=== PATIENT | female | born 1975 | race Caucasian/White ===

== ENCOUNTER 2017-07-04 10:01 | Emergency (ER) | payer MEDICAID, OTHER ==
[~2017-07-04] VITALS: Ht 154.9 cm; Wt 67.7 kg
[~2017-07-04 10:01] MED LIST: ESCI10TA45 PO; HYDR-565 PO; INDO25CA PO; OMEP-84 PO; ONDA4TAB9 PO; PANT40TA39 PO; POLY17PO10 PO; TRAM50TA2 PO; VAL5T PO; WEL75T PO; ZOF4T PO
[2017-07-04 10:06] VITALS: BP 156/94
[2017-07-04] MEDS ORDERED: ketorolac trometh inj. 60 MG/2 ML VIAL IM ONE (11:15)
== END 2017-07-04 11:45 | disposition home or self-care (01) ==
LOC: ER 10:01
DX: S96.912A Strain of unspecified muscle and tendon at ankle and foot level, left foot, initial encounter (principal); F15.10 Other stimulant abuse, uncomplicated; Z79.899 Other long term (current) drug therapy; Z90.49 Acquired absence of other specified parts of digestive tract; Z98.51 Tubal ligation status; Z98.890 Other specified postprocedural states; W01.0XXA Fall on same level from slipping, tripping and stumbling without subsequent striking against object, initial encounter; Y93.89 Activity, other specified; Y92.89 Other specified places as the place of occurrence of the external cause; Y99.8 Other external cause status
CPT/HCPCS: 29515; 73630; 99284

== ENCOUNTER 2018-09-29 22:55 | Emergency (ER) | payer SELFPAY ==
[~2018-09-29] VITALS: Ht 154.9 cm; Wt 69.0 kg
[~2018-09-29 22:55] MED LIST changes: +HYDR-4353 PO; -HYDR-565 PO; -INDO25CA PO; +INDO25CA18 PO; +LIDO700A32 TOP; +METH-360 PO
[2018-09-29 22:59] VITALS: BP 130/97
[2018-09-29] MEDS ORDERED: TETanus/Pertussis (Acell)/Diphther VAC/PF (Tdap-Adult) 0.5ml syringe IM ONE (23:35)
[2018-09-29] MEDS ORDERED: ONDA4TAB6 PO (23:47)
[2018-09-29] MEDS ORDERED: HYDR-4353 PO (23:47)
[2018-09-29] MEDS ORDERED: ondansetron 4mg rapidly disintigrating tab PO ONE (23:50)
[2018-09-29] MEDS ORDERED: HYDROcodone/acetaminophen 10/325mg tab PO ONE (23:50)
--- NOTE | 2018-09-30 00:06 | NUR ---
Patient with knee immobilizer and crutches. To lobby by w/c to be picked up by daughter.
== END 2018-09-30 00:11 | disposition home or self-care (01) ==
LOC: ER 22:56
DX: S80.02XA Contusion of left knee, initial encounter (principal); M23.8X2 Other internal derangements of left knee; L98.9 Disorder of the skin and subcutaneous tissue, unspecified; G89.29 Other chronic pain; F41.9 Anxiety disorder, unspecified; F32.9 Major depressive disorder, single episode, unspecified; F15.90 Other stimulant use, unspecified, uncomplicated; F10.129 Alcohol abuse with intoxication, unspecified; Z87.442 Personal history of urinary calculi; Z90.49 Acquired absence of other specified parts of digestive tract; Z90.710 Acquired absence of both cervix and uterus; Z98.51 Tubal ligation status; Z98.890 Other specified postprocedural states; Z88.1 Allergy status to other antibiotic agents; Z79.899 Other long term (current) drug therapy; W20.8XXA Other cause of strike by thrown, projected or falling object, initial encounter; Y93.89 Activity, other specified; Y92.89 Other specified places as the place of occurrence of the external cause; Y99.8 Other external cause status
CPT/HCPCS: 29505; 73564; 90471; 90715; 99284; J2405

== ENCOUNTER 2018-11-25 23:58 | Emergency (ER) | payer SELFPAY ==
[~2018-11-25] VITALS: Ht 154.9 cm; Wt 67.7 kg
[~2018-11-25 23:58] MED LIST changes: +INDO-12 PO; -INDO25CA18 PO; +ONDA4TAB6 PO
[2018-11-26] MEDS ORDERED: normal saline 1000ML IV soln IVB ONE (00:10)
[2018-11-26] MEDS ORDERED: LORazepam 2 mg/ml vial IV ONE (00:10)
[2018-11-26 00:40] LABS: BASOPHILS % (AUTO) 0.5 % (0-1); EOSINOPHILS # (AUTO) 0.4 X10'3 (0-0.9); EOSINOPHILS % (AUTO) 4.9 % (0-6); HEMATOCRIT 39.8 % (35.0-45.0); HEMOGLOBIN 13.8 g/dl (12.0-16.0); LYMPHOCYTES # (AUTO) 4.5 X10'3 (1.1-4.8); LYMPHOCYTES % (AUTO) 51.2 % (21-51); MEAN CORPUSCULAR HEMOGLOBIN 30.7 PG (27.0-31.0); MEAN CORPUSCULAR HGB CONC 34.5 g/dL (33.0-36.5); MEAN CORPUSCULAR VOLUME 88.9 FL (78-98); MEAN PLATELET VOLUME 8.3 FL (7.4-10.4); MONOCYTES # (AUTO) 0.4 X10'3 (0-0.9); MONOCYTES % (AUTO) 4.6 % (2-12); NEUTROPHILS # (AUTO) 3.4 X10'3 (1.8-7.7); NEUTROPHILS % (AUTO) 38.8 % (42-75); PLATELET COUNT 228 X10'3 (140-440); RED BLOOD COUNT 4.48 X10'6 (4.20-5.60); WHITE BLOOD COUNT 8.7 X10'3 (4.5-11.0)
[2018-11-26 00:51] LABS: ALANINE AMINOTRANSFERASE 26 U/L (12-78); ALBUMIN 3.8 G/DL (3.4-5.0); ALKALINE PHOSPHATASE 53 IU/L (46-116); ANION GAP 11 (8-16); ASPARTATE AMINO TRANSFERASE 15 U/L (10-37); BILIRUBIN,TOTAL 0.3 MG/DL (0.1-1.0); BLOOD UREA NITROGEN 9 MG/DL (7-18); BUN/CREATININE RATIO 12.5 (6.6-38.0); CALCIUM 8.6 MG/DL (8.5-10.1); CHLORIDE 106 MMOL/L (99-107); CREATININE 0.72 MG/DL (0.40-0.90); GLUCOSE 103 MG/DL (70-104); MAGNESIUM 1.8 MG/DL (1.5-2.4); SODIUM 143 MMOL/L (135-145); TOTAL CARBON DIOXIDE 26.3 MMOL/L (24-32); TOTAL PROTEIN 7.6 G/DL (6.4-8.2); eGFR 89 ML/MIN
--- NOTE | 2018-11-26 00:51 | NUR ---
Patient resting more comfortably in bed. Patient reports needing to void and requests bedside commode vs ambulating to restroom. Patient and family updated on POC.
[2018-11-26 01:06] LABS: CLARITY,URINE CLEAR (Clear); COLOR,URINE YELLOW (Yellow); GLUCOSE, URINE NEGATIVE (Neg); KETONES,URINE NEGATIVE (Neg); LEUKOCYTE ESTERASE ,URINE NEGATIVE (Neg); NITRITES, URINE NEGATIVE (Neg); OCCULT BLOOD,URINE NEGATIVE (Neg); PH,URINE 7.5 (4.8-8.0); PROTEIN,URINE NEGATIVE (Neg); UROBILINOGEN,URINE 0.2 E.U/dL (0.2-1.0)
[2018-11-26 01:11] LABS: UA COLLECTION TYPE CLN CATCH MIDSTREAM
[2018-11-26] MEDS ORDERED: POTA20TA19 PO (01:12)
[2018-11-26] MEDS ORDERED: potassium Cl 20 mEq SR tablet PO STA (01:28)
[2018-11-26 01:54] VITALS: BP 130/87
== END 2018-11-26 01:56 | disposition home or self-care (01) ==
LOC: ER 23:59
DX: F41.9 Anxiety disorder, unspecified (principal); E87.6 Hypokalemia; K30 Functional dyspepsia; G89.29 Other chronic pain; F31.9 Bipolar disorder, unspecified; F17.210 Nicotine dependence, cigarettes, uncomplicated; Z87.442 Personal history of urinary calculi; Z90.49 Acquired absence of other specified parts of digestive tract; Z90.710 Acquired absence of both cervix and uterus; Z98.51 Tubal ligation status; Z98.890 Other specified postprocedural states; F15.90 Other stimulant use, unspecified, uncomplicated; Z88.1 Allergy status to other antibiotic agents; Z79.899 Other long term (current) drug therapy
CPT/HCPCS: 36415; 71045; 80053; 81003; 83735; 83880; 84484; 85025; 85379; 93005; 96374; 99284; J2060; J7030

== ENCOUNTER 2019-01-08 20:02 | Emergency (ER) | payer SELFPAY ==
[~2019-01-08] VITALS: Ht 154.9 cm; Wt 65.0 kg
[2019-01-08] MEDS ORDERED: PENI500T2 PO (21:21)
[2019-01-08 22:01] VITALS: BP 140/89
== END 2019-01-08 21:45 | disposition home or self-care (01) ==
LOC: ER 20:03
DX: J02.9 Acute pharyngitis, unspecified (principal); G89.29 Other chronic pain; F41.9 Anxiety disorder, unspecified; F31.9 Bipolar disorder, unspecified; F15.90 Other stimulant use, unspecified, uncomplicated; Z90.49 Acquired absence of other specified parts of digestive tract; Z90.710 Acquired absence of both cervix and uterus; Z98.51 Tubal ligation status; Z98.890 Other specified postprocedural states; Z88.1 Allergy status to other antibiotic agents; Z79.2 Long term (current) use of antibiotics; Z79.899 Other long term (current) drug therapy
CPT/HCPCS: 87880; 99283